=== PATIENT | female | born 1970 | race African-American/Black ===

== ENCOUNTER 2024-09-07 12:55 | Emergency (ER) | payer OTHER ==
[2024-09-07 13:04] VITALS: RESP 19; BMI 23.2
[2024-09-07] MEDS ORDERED: guaiFENesin/D-METHORPHAN HB 10 ML UNIT-DOSE CUPS ONE (14:19)
[2024-09-07] MEDS ORDERED: ACETAMINOPHEN 500 MG TABLET (FP) ONE (14:20)
[2024-09-07] MEDS ORDERED: IBUPROFEN 600 MG TABLET (FP) PO ONE (14:20)
[2024-09-07] MEDS: IBUPROFEN 600 MG TABLET (FP) PO ONE (14:22)
[2024-09-07] MEDS: ACETAMINOPHEN 500 MG TABLET (FP) PO ONE (14:23)
[2024-09-07] MEDS: guaiFENesin/D-METHORPHAN HB 10 ML UNIT-DOSE CUPS PO ONE (14:23)
[2024-09-07 14:43] LABS: THROAT:GRP A STREP NOT DETECTED (NOTDETECTED)
[2024-09-07 15:28] VITALS: BP 102/67; PULSE 106; TEMP 100.2
== END 2024-09-07 15:53 | disposition home or self-care (01) ==
LOC: JER 12:55 → JERFT 12:55
DX: J10.1 Influenza due to other identified influenza virus with other respiratory manifestations (principal); R50.9 Fever, unspecified; R51.9 Headache, unspecified; R09.81 Nasal congestion; R05.9 Cough, unspecified; R00.0 Tachycardia, unspecified; Z20.822 Contact with and (suspected) exposure to COVID-19
CPT/HCPCS: 0241U-QW; 87651; 99283-25